=== PATIENT | male | born 1985 | race Two or more races ===

== ENCOUNTER 2020-09-27 19:24 | Emergency (ER) | payer OTHER ==
[2020-09-27 19:33] VITALS: BP 135/72; PULSE 69; TEMP 98.1; BMI 28.2
[2020-09-27 21:55] LABS: HIV INTERPRETATION NEGATIVE (NEGATIVE)
== END 2020-09-27 22:16 | disposition home or self-care (01) ==
LOC: JER 19:24 → JERFT 19:24
DX: Z11.4 Encounter for screening for human immunodeficiency virus [HIV] (principal)
CPT/HCPCS: 36415; 87389; 99282-25

== ENCOUNTER 2021-09-05 02:15 | Emergency (ER) | payer OTHER ==
[2021-09-05 02:30] VITALS: BP 132/79; PULSE 73; TEMP 98; BMI 28.0
[2021-09-05 03:01] LABS: URINE APPEARANCE CLEAR; URINE BILIRUBIN NEGATIVE (NEGATIVE); URINE COLOR YELLOW; URINE GLUCOSE (UA) NEGATIVE (NEGATIVE); URINE KETONE NEGATIVE (NEGATIVE); URINE LEUK ESTERASE NEGATIVE (NEGATIVE); URINE NITRITE NEGATIVE (NEGATIVE); URINE PROTEIN NEGATIVE (NEGATIVE); URINE UROBILINOGEN 0.2 mg/dL (0.2-1.0)
[2021-09-05] MEDS ORDERED: cefTRIAXone SODIUM 1 GM VIAL ONE (03:06)
[2021-09-05] MEDS ORDERED: LIDOCAINE HCL 1%, 10 MG/ML (20ML VIAL) ONE (03:06)
== END 2021-09-05 03:17 | disposition home or self-care (01) ==
LOC: JER 02:15
PROC: 3E0233Z Introduction of Anti-inflammatory into Muscle, Percutaneous Approach (ICD-10-PCS; principal; 2021-09-05)
DX: N34.1 Nonspecific urethritis (principal)
CPT/HCPCS: 36415; 81003; 87086; 87491; 87591; 99284-25